=== PATIENT | female | born 1955 | race African-American/Black ===

== ENCOUNTER 2019-10-17 08:48 | Inpatient (IN) | payer MEDICAID ==
[~2019-10-17] VITALS: Ht 165.1 cm; Wt 91.2 kg
[~2019-10-17 08:48] MED LIST: ALBU18HF2 IH; BENA20TA10 PO; CARV3.1242 PO; CHOL100046 PO; MOME13HF INH; MONT10TA26 PO; TIOT18CA3 INH; [UNRECOGNIZED DRUG - OTHER]
[2019-10-17] MEDS ORDERED: IPRATROPIUM/ALBUTEROL 0.5-3(2.5)MG/3ML NEB HHN ONE ×3 (09:30→14:45)
[2019-10-17 09:41] LABS: BASOPHILS % 0.7 % (0.0-2.0); EOSINOPHILS % 1.8 % (0.0-5.0); HEMATOCRIT. 42.2 % (36.0-48.0); HEMOGLOBIN. 13.7 g/dL (12.0-16.0); LYMPHOCYTES % 26.9 % (20.0-50.0); MEAN CORPUSCULAR HEMOGLOBIN 30.4 pg (28.0-32.0); MEAN PLATELET VOLUME 9.8 fl (7.4-10.4); MONOCYTES % 8.6 % (2.0-8.0); PLATELET 205 x1000/uL (130-400); RED BLOOD CELL COUNT 4.49 mill/uL (4.2-5.4); RED CELL DISTRIBUTION WIDTH 14.8 % (11.6-14.6)
[2019-10-17 09:45] LABS: CHLORIDE 103 mEq/L (98-107)
[2019-10-17] MEDS ORDERED: PREDNISONE 20MG TABLET PO STA (10:04)
[2019-10-17] MEDS ORDERED: IPRATROPIUM/ALBUTEROL 0.5-3(2.5)MG/3ML NEB NEB PRN (15:30)
[2019-10-17] MEDS ORDERED: DOCUSATE SODIUM 100MG CAPSULE PO PRN (15:30)
[2019-10-17] MEDS ORDERED: GUAIFENESIN 200MG/10ML SUGAR FREE UDC PO PRN (15:30)
[2019-10-17] MEDS ORDERED: MAGNESIUM/ALUMINUM HYDROXIDE/SIMETHICONE 30ML UDC PO PRN (15:30)
[2019-10-17] MEDS ORDERED: CLONIDINE 0.1MG TABLET PO PRN (15:30)
[2019-10-17] MEDS ORDERED: ONDANSETRON HCL 4MG/2ML INJ IV PRN (15:30)
[2019-10-17] MEDS ORDERED: HYDROCODONE/ACETAMINOPHEN 5/325MG TABLET PO PRN (15:30)
[2019-10-17] MEDS ORDERED: HYDROMORPHONE HCL/PF 2MG/ML CPJ IV PRN (15:30)
[2019-10-17] MEDS ORDERED: AZITHROMYCIN 500 MG in DEXT 5% WATER 250 ML IV SCH (16:30)
[2019-10-17] MEDS ORDERED: METHYLPREDNISOLONE SOD SUCC 125 MG/2 ML VIAL IV NR (18:00)
[2019-10-17] MEDS: AMLODIPINE 10MG TABLET PO SCH (19:09)
[2019-10-17] MEDS: ENOXAPARIN 40MG/0.4ML SYR SUBCUT SCH (19:10)
[2019-10-17] MEDS ORDERED: CEFTRIAXONE 1 G PREMIX 50 ML IV NR (21:15)
[2019-10-17] MEDS: FAMOTIDINE 20MG TABLET PO SCH (22:01)
[2019-10-17] MEDS: MONTELUKAST SODIUM 10MG TABLET PO SCH (22:01)
[2019-10-18 04:50] LABS: BASOPHILS % 0.3 % (0.0-2.0); EOSINOPHILS % 0.1 % (0.0-5.0); HEMATOCRIT. 42.7 % (36.0-48.0); HEMOGLOBIN. 13.8 g/dL (12.0-16.0); LYMPHOCYTES % 10.4 % (20.0-50.0); MEAN CORPUSCULAR HEMOGLOBIN 30.7 pg (28.0-32.0); MEAN CORPUSCULAR VOLUME 94.5 fL (81.0-99.0); MEAN PLATELET VOLUME 9.7 fl (7.4-10.4); MONOCYTES % 0.8 % (2.0-8.0); NEUTROPHILS % 88.4 % (40.0-76.0); PLATELET 238 x1000/uL (130-400); RED BLOOD CELL COUNT 4.51 mill/uL (4.2-5.4); RED CELL DISTRIBUTION WIDTH 14.9 % (11.6-14.6)
[2019-10-18 04:57] LABS: CHLORIDE 100 mEq/L (98-107)
[2019-10-18] MEDS: METHYLPREDNISOLONE SOD SUCC 125 MG/2 ML VIAL IV SCH ×4 (05:06→17:31)
[2019-10-18 06:15] VITALS: BP 129/68
[2019-10-18 08:00] VITALS: BP 117/61
[2019-10-18] MEDS: AMLODIPINE 10MG TABLET PO SCH (09:38)
[2019-10-18] MEDS ORDERED: ATOR40TA70 PO (09:48)
[2019-10-18] MEDS ORDERED: VER40 PO (09:50)
[2019-10-18] MEDS ORDERED: GABA-529 PO (09:51)
[2019-10-18] MEDS: LORATADINE 10MG TABLET PO SCH (09:59)
[2019-10-18] MEDS: FAMOTIDINE 20MG TABLET PO SCH ×2 (09:59→21:18)
[2019-10-18] MEDS: NICOTINE 21MG PATCH TD SCH (12:00)
[2019-10-18] MEDS ORDERED: DEXTROSE 50% WATER 50ML SYRINGE IV PRN (12:00)
[2019-10-18] MEDS: BLOOD SUGAR DIAGNOSTIC STRIP TEST SCH ×3 (12:02→21:04)
[2019-10-18] MEDS: GUAIFENESIN 600MG ER TABLET PO SCH ×2 (12:06→21:18)
[2019-10-18] MEDS: INSULIN LISPRO 100 UNITS/ML SUBCUT SCH ×3 (12:07→21:20)
[2019-10-18] MEDS: FLUTICASONE PROPIONATE 50MCG/SPRAY BOTTLE BOTHNSTRLS SCH ×2 (13:13→21:00)
[2019-10-18] MEDS ORDERED: AZITHROMYCIN 500 MG in DEXT 5% WATER 250 ML IV SCH ×2 (17:00→20:00)
[2019-10-18] MEDS: MONTELUKAST SODIUM 10MG TABLET PO SCH (17:31)
[2019-10-18] MEDS: ENOXAPARIN 40MG/0.4ML SYR SUBCUT SCH (17:32)
[2019-10-18 20:00] VITALS: BP 108/39
[2019-10-18] MEDS ORDERED: CEFTRIAXONE 1 G PREMIX 50 ML IV SCH ×2 (21:00→22:00)
[2019-10-18] MEDS: IPRATROPIUM/ALBUTEROL 0.5-3(2.5)MG/3ML NEB HHN SCH (22:05)
[2019-10-19] MEDS: METHYLPREDNISOLONE SOD SUCC 125 MG/2 ML VIAL IV SCH ×3 (00:06→12:14)
[2019-10-19] MEDS: IPRATROPIUM/ALBUTEROL 0.5-3(2.5)MG/3ML NEB HHN SCH ×2 (01:17→09:30)
[2019-10-19 04:00] VITALS: BP 128/65
[2019-10-19] MEDS: BLOOD SUGAR DIAGNOSTIC STRIP TEST SCH ×2 (06:28→12:08)
[2019-10-19 08:00] VITALS: BP 134/65
[2019-10-19] MEDS: INSULIN LISPRO 100 UNITS/ML SUBCUT SCH ×2 (08:13→12:14)
[2019-10-19] MEDS: FAMOTIDINE 20MG TABLET PO SCH (08:14)
[2019-10-19] MEDS: GUAIFENESIN 600MG ER TABLET PO SCH (08:14)
[2019-10-19] MEDS: LORATADINE 10MG TABLET PO SCH (08:14)
[2019-10-19] MEDS: AMLODIPINE 10MG TABLET PO SCH (08:15)
[2019-10-19] MEDS: NICOTINE 21MG PATCH TD SCH (08:15)
[2019-10-19] MEDS: FLUTICASONE PROPIONATE 50MCG/SPRAY BOTTLE BOTHNSTRLS SCH (08:17)
[2019-10-19 12:28] VITALS: BP 134/55
[2019-10-20 09:10] LABS: ABSOLUTE LYMPHOCYTES 1.3 x10E3/uL (0.7-3.1); ABSOLUTE MONOCYTES 0.3 x10E3/uL (0.1-0.9); ABSOLUTE NEUTROPHILS 7.9 x10E3/uL (1.4-7.0); BASOPHILS 0 % (Not Estab.); HEMATOCRIT 42.1 % (34.0-46.6); HEMOGLOBIN 12.7 g/dL (11.1-15.9); IMMATURE GRANULOCYTES 0 % (Not Estab.); LYMPHOCYTES 14 % (Not Estab.); MEAN CORPUSCULAR HEMOGLOBIN 29.6 pg (26.6-33.0); MEAN CORPUSCULAR HGB CONC. 30.2 g/dL (31.5-35.7); MEAN CORPUSCULAR VOLUME 98 fL (79-97); MONOCYTES 3 % (Not Estab.); NEUTROPHILS 83 % (Not Estab.); PLATELETS 322 x10E3/uL (150-450); RBC 4.29 x10E6/uL (3.77-5.28); RED CELL DISTRIBUTION WIDTH 14.6 % (11.7-15.4); WBC 9.5 x10E3/uL (3.4-10.8)
[2019-10-21 09:08] LABS: % CD 3 POS. LYMPHOCYTES 47.8 % (57.5-86.2); % CD 4 POS. LYMPHOCYTES 26.1 % (30.8-58.5); % CD 8 POS. LYMPH 22.7 % (12.0-35.5); ABSOLUTE CD 3 621 /uL (622-2402); ABSOLUTE CD 4 HELPER 339 /uL (359-1519); ABSOLUTE CD 8 SUPPRESSOR 295 /uL (109-897); CD4/CD8 RATIO 1.15 (0.92-3.72)
== END 2019-10-19 13:50 | disposition home or self-care (01) | DRG 133 ==
LOC: ER 08:48 → 6WST 14:39 → ENRESERV 10-18 03:36
PROVIDERS: ADMIT Hospitalist; ATTEND Hospitalist
DX: J96.00 Acute respiratory failure, unspecified whether with hypoxia or hypercapnia (principal); J45.901 Unspecified asthma with (acute) exacerbation; J44.9 Chronic obstructive pulmonary disease, unspecified; E11.9 Type 2 diabetes mellitus without complications; F17.200 Nicotine dependence, unspecified, uncomplicated; I10 Essential (primary) hypertension; Z79.899 Other long term (current) drug therapy; Z82.5 Family history of asthma and other chronic lower respiratory diseases; Z90.710 Acquired absence of both cervix and uterus; Z88.8 Allergy status to other drugs, medicaments and biological substances; Z98.891 History of uterine scar from previous surgery
CPT/HCPCS: 36415; 71045; 80053; 82962; 83036; 85025; 86359; 86360; 93005; 93970; 94640; 99285; J0456; J0696; J1170; J1650; J1815; J2405; J2930; J7060; J7512

== ENCOUNTER 2019-12-06 09:20 | Inpatient (IN) | payer MEDICAID ==
[~2019-12-06] VITALS: Ht 154.9 cm; Wt 103.4 kg
[~2019-12-06 09:20] MED LIST changes: +ATOR40TA70 PO; +GABA-529 PO; +VER40 PO
[2019-12-06] MEDS ORDERED: METHYLPREDNISOLONE SOD SUCC 125 MG/2 ML VIAL IV SCH ×2 (09:45→13:30)
[2019-12-06] MEDS ORDERED: ALBUTEROL (0.083%) 2.5MG/3ML NEB HHN ONE ×2 (09:45→11:30)
[2019-12-06 10:18] LABS: BASOPHILS % 0.6 % (0.0-2.0); EOSINOPHILS % 3.3 % (0.0-5.0); HEMATOCRIT. 38.3 % (36.0-48.0); HEMOGLOBIN. 12.5 g/dL (12.0-16.0); LYMPHOCYTES % 40.6 % (20.0-50.0); MEAN CORPUSCULAR HEMOGLOBIN 30.1 pg (28.0-32.0); MEAN CORPUSCULAR VOLUME 91.9 fL (81.0-99.0); MEAN PLATELET VOLUME 8.7 fl (7.4-10.4); MONOCYTES % 9.3 % (2.0-8.0); NEUTROPHILS % 46.2 % (40.0-76.0); PLATELET 254 x1000/uL (130-400); RED BLOOD CELL COUNT 4.16 mill/uL (4.2-5.4); RED CELL DISTRIBUTION WIDTH 15.3 % (11.6-14.6)
[2019-12-06 10:25] LABS: CHLORIDE 105 mEq/L (98-107)
[2019-12-06] MEDS ORDERED: ONDANSETRON HCL 4MG/2ML INJ IV PRN (13:00)
[2019-12-06] MEDS ORDERED: CLONIDINE 0.1MG TABLET PO PRN (13:00)
[2019-12-06] MEDS ORDERED: ACETAMINOPHEN 325MG TABLET PO PRN (13:00)
[2019-12-06] MEDS ORDERED: HYDROCODONE/ACETAMINOPHEN 5/325MG TABLET PO PRN (13:00)
[2019-12-06] MEDS ORDERED: MORPHINE SULFATE 2 MG/ML CPJ (NOT FOR IM USE) IV PRN (13:00)
[2019-12-06] MEDS ORDERED: NA PHOS,M-B/NA PHOS,DI-BA ENEMA 118ML PR PRN (13:00)
[2019-12-06] MEDS ORDERED: DOCUSATE SODIUM 100MG CAPSULE PO PRN (13:00)
[2019-12-06] MEDS ORDERED: IPRATROPIUM/ALBUTEROL 0.5-3(2.5)MG/3ML NEB NEB PRN (13:00)
[2019-12-06] MEDS ORDERED: DIPHENHYDRAMINE 50MG/ML VIAL IV PRN (13:00)
[2019-12-06] MEDS ORDERED: LORAZEPAM 2MG/ML CPJ IV PRN (13:00)
[2019-12-06] MEDS ORDERED: MAGNESIUM/ALUMINUM HYDROXIDE/SIMETHICONE 30ML UDC PO PRN (13:00)
[2019-12-06] MEDS ORDERED: GUAIFENESIN 200MG/10ML SUGAR FREE UDC PO PRN (13:00)
[2019-12-06] MEDS ORDERED: LEVOFLOXACIN 500MG PREMIX 100 ML IV SCH (13:30)
[2019-12-06] MEDS ORDERED: ENOXAPARIN 30MG/0.3ML SYR SUBCUT SCH (13:30)
[2019-12-06 14:58] LABS: CHLORIDE 104 mEq/L (98-107)
[2019-12-06] MEDS: INSULIN LISPRO 100 UNITS/ML SUBCUT SCH ×2 (18:43→21:27)
[2019-12-06] MEDS ORDERED: DEXTROSE 50% WATER 50ML SYRINGE IV PRN (18:45)
[2019-12-06] MEDS: BLOOD SUGAR DIAGNOSTIC STRIP TEST SCH ×2 (18:50→21:28)
[2019-12-06 20:15] VITALS: BP 163/80
[2019-12-06] MEDS ORDERED: IPRATROPIUM/ALBUTEROL 0.5-3(2.5)MG/3ML NEB HHN PRN (21:30)
[2019-12-06] MEDS ORDERED: NPH,100V SQ ×2 (22:06)
[2019-12-06] MEDS ORDERED: ELVI1TAB3 PO (22:06)
[2019-12-07] VITALS (7 sets, daily range): BP systolic 116–159; BP diastolic 48–91
[2019-12-07] MEDS: METHYLPREDNISOLONE SOD SUCC 125 MG/2 ML VIAL IV SCH ×4 (00:24→17:36)
[2019-12-07] MEDS: IPRATROPIUM/ALBUTEROL 0.5-3(2.5)MG/3ML NEB HHN SCH ×6 (00:40→21:32)
[2019-12-07] MEDS: ENOXAPARIN 30MG/0.3ML SYR SUBCUT SCH ×2 (06:42→17:36)
[2019-12-07] MEDS: BLOOD SUGAR DIAGNOSTIC STRIP TEST SCH ×4 (06:42→21:43)
[2019-12-07] MEDS: INSULIN LISPRO 100 UNITS/ML SUBCUT SCH ×4 (06:46→22:21)
[2019-12-07 07:18] LABS: BASOPHILS % 0.2 % (0.0-2.0); HEMOGLOBIN. 12.3 g/dL (12.0-16.0); LYMPHOCYTES % 11.3 % (20.0-50.0); MEAN CORPUSCULAR HEMOGLOBIN 30.6 pg (28.0-32.0); MEAN PLATELET VOLUME 9.2 fl (7.4-10.4); MONOCYTES % 1.7 % (2.0-8.0); NEUTROPHILS % 86.8 % (40.0-76.0); PLATELET 241 x1000/uL (130-400); RED BLOOD CELL COUNT 4.02 mill/uL (4.2-5.4); RED CELL DISTRIBUTION WIDTH 15.1 % (11.6-14.6)
[2019-12-07 07:48] LABS: CHLORIDE 103 mEq/L (98-107)
[2019-12-07 07:58] LABS: LDL CHOLESTEROL 87 mg/dL (5-100)
[2019-12-07 08:00] LABS: HDL CHOLESTEROL 79 mg/dL (40-59); T4 FREE 0.88 ng/dL (0.76-1.46)
[2019-12-07] MEDS: ASPIRIN 81MG EC TABLET PO SCH (08:47)
[2019-12-07] MEDS: LEVOFLOXACIN 500MG PREMIX 100 ML IV SCH (17:35)
[2019-12-08] VITALS (7 sets, daily range): BP systolic 128–162; BP diastolic 68–80
[2019-12-08] MEDS: METHYLPREDNISOLONE SOD SUCC 125 MG/2 ML VIAL IV SCH ×5 (00:07→23:19)
[2019-12-08] MEDS: IPRATROPIUM/ALBUTEROL 0.5-3(2.5)MG/3ML NEB HHN SCH ×6 (01:16→19:55)
[2019-12-08] MEDS: ENOXAPARIN 30MG/0.3ML SYR SUBCUT SCH ×2 (06:30→18:08)
[2019-12-08] MEDS: BLOOD SUGAR DIAGNOSTIC STRIP TEST SCH ×4 (07:22→20:29)
[2019-12-08] MEDS: ASPIRIN 81MG EC TABLET PO SCH (08:51)
[2019-12-08] MEDS: INSULIN LISPRO 100 UNITS/ML SUBCUT SCH ×4 (08:52→20:29)
[2019-12-08] MEDS: LEVOFLOXACIN 500MG PREMIX 100 ML IV SCH (18:08)
[2019-12-09] VITALS: BP 128/60
[2019-12-09] MEDS: IPRATROPIUM/ALBUTEROL 0.5-3(2.5)MG/3ML NEB HHN SCH ×4 (01:19→14:30)
[2019-12-09 04:00] VITALS: BP 152/63
[2019-12-09] MEDS: METHYLPREDNISOLONE SOD SUCC 125 MG/2 ML VIAL IV SCH ×3 (05:53→16:26)
[2019-12-09] MEDS: ENOXAPARIN 30MG/0.3ML SYR SUBCUT SCH (05:56)
[2019-12-09] MEDS: BLOOD SUGAR DIAGNOSTIC STRIP TEST SCH ×2 (06:09→12:10)
[2019-12-09 08:00] VITALS: BP 142/62
[2019-12-09] MEDS: INSULIN LISPRO 100 UNITS/ML SUBCUT SCH ×2 (08:27→12:16)
[2019-12-09] MEDS: ASPIRIN 81MG EC TABLET PO SCH (08:27)
[2019-12-09 12:24] VITALS: BP 138/60
[2019-12-09 15:49] VITALS: BP 142/82
[2019-12-09 15:53] VITALS: BP 142/82
[2019-12-09] MEDS: LEVOFLOXACIN 500MG PREMIX 100 ML IV SCH (16:26)
== END 2019-12-09 16:44 | disposition home or self-care (01) | DRG 140 ==
LOC: ER 09:20 → EDBEDREQTM 12:32 → EDBEDREQ 12:32 → 7WST 12:44 → ENRESERV 19:22 → EDBEDREQ 19:28 → 6WST 23:20
PROVIDERS: ADMIT Internal Medicine; ATTEND Internal Medicine
DX: J44.0 Chronic obstructive pulmonary disease with (acute) lower respiratory infection (principal); J96.00 Acute respiratory failure, unspecified whether with hypoxia or hypercapnia; J45.901 Unspecified asthma with (acute) exacerbation; J44.1 Chronic obstructive pulmonary disease with (acute) exacerbation; J69.0 Pneumonitis due to inhalation of food and vomit; E11.43 Type 2 diabetes mellitus with diabetic autonomic (poly)neuropathy; I10 Essential (primary) hypertension; B20 Human immunodeficiency virus [HIV] disease; Z20.828 Contact with and (suspected) exposure to other viral communicable diseases; E11.65 Type 2 diabetes mellitus with hyperglycemia; T38.0X5A Adverse effect of glucocorticoids and synthetic analogues, initial encounter; E78.5 Hyperlipidemia, unspecified; Z88.8 Allergy status to other drugs, medicaments and biological substances; Z79.82 Long term (current) use of aspirin; Y92.89 Other specified places as the place of occurrence of the external cause; Z79.899 Other long term (current) drug therapy
CPT/HCPCS: 36415; 71045; 80048; 80053; 80061; 82962; 83036; 84439; 84443; 84484; 85025; 93005; 94640; 96374; 99285; J1650; J1815; J1956; J2930; U0003-CS